=== PATIENT | female | born 2000 | race Caucasian/White ===

== ENCOUNTER 2019-02-04 15:03 | Inpatient (IN) | payer MEDICAID ==
[2019-02-04] MEDS ORDERED: OXYTOCIN 30 UNITS/LR 500 ML IV ×2 (18:00)
[2019-02-04] MEDS ORDERED: CARBOPROST 250 MCG INJ IM (18:00)
[2019-02-04] MEDS ORDERED: LIDOCAINE 1% (MPF) 30 ML INJ INJ (18:00)
[2019-02-04] MEDS ORDERED: MISOPROSTOL 200 MCG TAB PR (18:00)
[2019-02-04] MEDS ORDERED: METHYLERGONOVINE 0.2 MG INJ IM (18:00)
[2019-02-04] MEDS: LACTATED RINGER'S 1,000 ML IV ×2 (18:09→19:40)
[2019-02-04 18:54] LABS: ADD MAN DIFF? NO
[2019-02-04 18:56] LABS: BASOPHILS % 0.2 % (0.0-2.0); EOSINOPHILS % 0.3 % (0.0-7.0); HEMATOCRIT 31.5 % (37.0-47.0); HEMOGLOBIN 10.1 g/dl (12.0-16.0); LYMPHOCYTES # 1.6 10^3/ul (0.8-2.9); LYMPHOCYTES % 13.9 % (18.0-55.0); MEAN CORPUSCULAR HEMOGLOBIN 29.7 pg (29.0-33.0); MEAN CORPUSCULAR HGB CONC 32.1 g/dl (32.0-37.0); MEAN CORPUSCULAR VOLUME 92.6 fl (72.0-104.0); MEAN PLATELET VOLUME 10.6 fl (7.4-10.4); MONOCYTE # 0.9 10^3/ul (0.3-0.9); MONOCYTES % 7.5 % (0.0-13.0); NEUTROPHIL # 8.7 10^3/ul (1.6-7.5); NEUTROPHILS % 77.2 % (30.0-74.0); PLATELET COUNT 247 10^3/UL (140-415); RED CELL DISTRIBUTION WIDTH 12.8 % (11.5-14.5)
[2019-02-04 18:56] LABS: WHITE BLOOD COUNT 11.3 10^3/ul (4.8-10.8)
[2019-02-04 19:15] LABS: INR 0.97
[2019-02-04 19:16] LABS: PARTIAL THROMBOPLASTIN TIME 28.1 Sec (23.0-35.0)
[2019-02-04 19:28] LABS: AMPHETAMINE/METHAMPHETAMINE Negative (NEGATIVE); BARBITURATES Negative (NEGATIVE); BENZODIAZEPINES Negative (NEGATIVE); COCAINE Negative (NEGATIVE); OPIATES Negative (NEGATIVE)
[2019-02-04 19:42] LABS: CANNABINOIDS Negative (NEGATIVE)
[2019-02-04 19:49] LABS: HEPATITIS B SURFACE ANTIGEN NEGATIVE (NEGATIVE)
[2019-02-04] MEDS: MISOPROSTOL 50 MCG CAPSULE PO (22:10)
[2019-02-05] MEDS: MISOPROSTOL 50 MCG CAPSULE PO ×5 (02:00→17:00)
[2019-02-05] MEDS: LACTATED RINGER'S 1,000 ML IV ×4 (03:47→20:21)
[2019-02-05] MEDS: BUTORPHANOL 2 MG INJ IV (06:33)
[2019-02-05 16:01] LABS: RAPID PLASMA REAGIN NONREACTIVE (NR)
[2019-02-05] MEDS: OXYTOCIN 30 UNITS/LR 500 ML IV (17:15)
[2019-02-05] MEDS ORDERED: FENTAnyl 2MCG/ML-ROPIV 0.2% 100 ML (19:50)
[2019-02-05] MEDS ORDERED: NALOXONE (0.4 MG/ML) INJ IV (20:00)
[2019-02-05] MEDS ORDERED: DIPHENHYDRAMINE 50 MG INJ IV (20:00)
[2019-02-06] MEDS: LACTATED RINGER'S 1,000 ML IV (01:33)
[2019-02-06] MEDS: FENTAnyl 2MCG/ML-ROPIV 0.2% 100 ML BAG EPI (03:48)
[2019-02-06] MEDS: ONDANSETRON 4 MG INJ IV (05:09)
[2019-02-06] MEDS: OXYTOCIN 30 UNITS/LR 500 ML IV (13:26)
[2019-02-06] MEDS: HYDROCODONE/APAP (5/325) TAB PO (13:41)
[2019-02-06] MEDS: LACTATED RINGER'S 1,000 ML IV* (16:21)
[2019-02-06] MEDS ORDERED: OXYCODONE/ASPIRIN (4.88/325) TAB PO (16:30)
[2019-02-06] MEDS ORDERED: DIPHENHYDRAMINE 50 MG INJ IV (16:30)
[2019-02-06] MEDS ORDERED: ONDANSETRON 4 MG INJ IV (16:30)
[2019-02-06] MEDS ORDERED: OXYTOCIN 30 UNITS/LR 500 ML IV (16:30)
[2019-02-06] MEDS ORDERED: METHYLERGONOVINE 0.2 MG INJ IM (16:30)
[2019-02-06] MEDS ORDERED: MISOPROSTOL 200 MCG TAB PR (16:30)
[2019-02-06] MEDS ORDERED: LANOLIN HPA 1 PKT TOP (16:30)
[2019-02-06] MEDS ORDERED: CARBOPROST 250 MCG INJ IM (16:30)
[2019-02-06] MEDS ORDERED: DIBUCAINE 1% 30 GM OINT TOP (16:30)
[2019-02-06] MEDS ORDERED: ZOLPIDEM 5 MG TAB PO (16:30)
[2019-02-06] MEDS ORDERED: ACETAMINOPHEN 325 MG TAB PO (16:30)
[2019-02-06] MEDS: WITCH HAZEL/GLYCERIN PAD PR (17:06)
[2019-02-06] MEDS: BENZOCAINE 20% 56 ML SPRAY TOP (17:06)
[2019-02-06] MEDS: DEXTROSE 5%-LR 1,000 ML IV (17:07)
[2019-02-06] MEDS: IBUPROFEN 600 MG TAB PO ×2 (17:07→23:30)
[2019-02-06] MEDS: SENNA/DOCUSATE NA (8.6MG/50MG) TAB PO (21:17)
[2019-02-07] MEDS: IBUPROFEN 600 MG TAB PO ×4 (05:31→23:57)
[2019-02-07 08:42] LABS: ADD MAN DIFF? NO
[2019-02-07 08:46] LABS: BASOPHILS % 0.3 % (0.0-2.0); EOSINOPHILS # 0.1 10^3/ul (0.0-0.5); EOSINOPHILS % 0.5 % (0.0-7.0); HEMATOCRIT 28.5 % (37.0-47.0); HEMOGLOBIN 9.3 g/dl (12.0-16.0); LYMPHOCYTES % 12.7 % (18.0-55.0); MEAN CORPUSCULAR HEMOGLOBIN 30.4 pg (29.0-33.0); MEAN CORPUSCULAR HGB CONC 32.6 g/dl (32.0-37.0); MEAN CORPUSCULAR VOLUME 93.1 fl (72.0-104.0); MONOCYTE # 1.1 10^3/ul (0.3-0.9); MONOCYTES % 7.2 % (0.0-13.0); NEUTROPHIL # 12.5 10^3/ul (1.6-7.5); NEUTROPHILS % 78.7 % (30.0-74.0); PLATELET COUNT 223 10^3/UL (140-415); RED BLOOD COUNT 3.06 10^6/ul (4.20-5.40); RED CELL DISTRIBUTION WIDTH 12.9 % (11.5-14.5)
[2019-02-07 08:46] LABS: WHITE BLOOD COUNT 15.8 10^3/ul (4.8-10.8)
[2019-02-07] MEDS: SENNA/DOCUSATE NA (8.6MG/50MG) TAB PO (09:16)
[2019-02-07] MEDS: BENZOCAINE 20% 56 ML SPRAY TOP (17:29)
[2019-02-07] MEDS: WITCH HAZEL/GLYCERIN PAD PR (17:29)
[2019-02-08] MEDS: IBUPROFEN 600 MG TAB PO ×2 (05:40→12:28)
[2019-02-08] MEDS: DIPHTH/TET/ACEL PERTUSS (ADULT) 0.5 ML VIAL IM* (09:00)
[2019-02-08] MEDS: MEASLES,MUMPS,RUBELLA VACCINE INJ SC* (09:00)
== END 2019-02-08 17:02 | disposition home or self-care (01) | DRG 807 ==
LOC: OBT 15:03 → L-D 02-05 19:37 → PP1 02-06 15:50 → OBT 17:25 → L-D 17:25
PROC: 10E0XZZ Delivery of Products of Conception, External Approach (ICD-10-PCS; principal; 2019-02-05)
PROC: 0W8NXZZ Division of Female Perineum, External Approach (ICD-10-PCS; 2019-02-05)
PROC: 3E033VJ Introduction of Other Hormone into Peripheral Vein, Percutaneous Approach (ICD-10-PCS; 2019-02-05)
DX: O69.81X0 Labor and delivery complicated by cord around neck, without compression, not applicable or unspecified (principal); Z37.0 Single live birth; Z3A.39 39 weeks gestation of pregnancy
CPT/HCPCS: 76815; 76818; 80307; 85025; 85610; 85730; 86592; 86850; 86900; 86901; 87340